=== PATIENT | male | born 1965 | race Caucasian/White ===

== ENCOUNTER 2020-06-20 09:33 | Emergency (ER) | payer SELFPAY ==
[~2020-06-20] VITALS: Ht 190.5 cm; Wt 83.9 kg
--- NOTE | 2020-06-20 09:33 | NUR ---
PT BIBA AND PLACED IN BED 9. COVID PRECAUTIONS IN PLACE.
[2020-06-20] MEDS ORDERED: NACL 0.9% 1,000 ML IV SCH (09:43)
[2020-06-20 09:45] VITALS: BP 107/45
[2020-06-20] MEDS ORDERED: cefTRIAXone 1,000 MG in DEXT 5% MINI-BAG PLUS 50 ML IV ONE (09:45)
--- NOTE | 2020-06-20 09:49 | NUR ---
55 y/o male biba als from home c/o altered mental status, chest, and back pain x 1 wk. Pt states he has increased pain with respirations. Denies trauma/injury. Pt unable to state month or year at this time. Skin warm, dry, and normal in color. RR even and unlabored. Positioned for comfort. x 2 side rails raised. placed on bedside monitor. medhx: asthma
[2020-06-20] MEDS ORDERED: cefTRIAXone 1,000 MG VIAL ONE (09:50)
--- NOTE | 2020-06-20 09:51 | NUR ---
lab at bedside
[2020-06-20 10:08] LABS: BASOPHILS # (AUTO) 0.2 K/uL (0.00-0.22); BASOPHILS % (AUTO) 1.1 % (0.0-2.0); EOSINOPHILS % (AUTO) 0.1 % (0.0-4.0); HEMATOCRIT 31.7 % (36-52); HEMOGLOBIN 10.4 g/dL (12.0-18.0); LYMPHOCYTES # (AUTO) 0.5 K/uL (2.0-11.5); LYMPHOCYTES % (AUTO) 3.3 % (20.5-51.1); MEAN CORPUSCULAR HEMOGLOBIN 31 pg (27-31); MEAN CORPUSCULAR HGB CONC 33 g/dL (33-37); MEAN CORPUSCULAR VOLUME 94.9 fL (80-94); NEUTROPHILS # (AUTO) 14.4 K/uL (1.8-7.7); NEUTROPHILS % (AUTO) 89.5 % (42.2-75.2); PLATELET COUNT (AUTO) 168 K/uL (140-450); RED BLOOD CELL COUNT(AUTO) 3.33 MIL/uL (4.20-6.10); WHITE BLOOD COUNT (AUTO) 16.1 K/uL (4.8-10.8)
--- NOTE | 2020-06-20 10:11 | NUR ---
Pt to CT via [facility]
--- NOTE | 2020-06-20 10:25 | NUR ---
Pt returned from CT via [facility]
[2020-06-20 10:46] LABS: ALBUMIN 1.6 g/dL (3.4-5.0); ANION GAP 15.4 (8-16); CARBON DIOXIDE 19.8 mmol/L (21-32); CREATININE 1.3 mg/dL (0.6-1.3); POTASSIUM 3.2 mmol/L (3.5-5.1); TOTAL BILIRUBIN 0.5 mg/dL (0.0-1.0)
[2020-06-20] MEDS ORDERED: NACL 0.9% 1,000 ML IV ONE ×2 (11:05→11:30)
--- NOTE | 2020-06-20 11:13 | NUR ---
300cc clear, yellow urine collected via straight cath.
--- NOTE | 2020-06-20 11:27 | NUR ---
Dr Box at bedside re-evaluating pt
--- NOTE | 2020-06-20 11:43 | NUR ---
Pt resting in bed with eyes closed, arousable to voice. Positioned for comfort. x 2 side rails raised, bed locked and in lowest position.
--- NOTE | 2020-06-20 12:41 | NUR ---
HOB elevated, resting with eyes closed. No complaints at this time. VSS
--- NOTE | 2020-06-20 12:49 | NUR ---
Report called to [facility], spoke to OCTAVIANO Gibson
[2020-06-20 13:42] VITALS: BP 96/62
--- NOTE | 2020-06-20 13:43 | NUR ---
Patient to be transferred to [facility]. Is being transferred due to higher level of care. Receiving facility has accepting physician and available space. ER physician has signed transfer form. Patient or responsible alliance party has agreed to transfer and signed form. Patient belongings inventoried and will be sent with patient. Copy of nursing notes, lab reports, EKG, Physicians Orders and X-rays to be sent with patient. Report called to OCTAVIANO Gibson at receiving facility. [facility] ambulance service has been called for transfer.
[2020-06-20 20:43] LABS: APPEARANCE,URINE CLEAR (CLEAR); BILIRUBIN,URINE NEGATIVE (NEGATIVE); BLOOD, URINE 3+ (NEGATIVE); COLOR,URINE YELLOW (YELLOW); LEUKOCYTE ESTERASE ,URINE NEGATIVE (NEGATIVE); NITRITE, URINE NEGATIVE (NEGATIVE); UGLUCOSE NEGATIVE (NEGATIVE)
[2020-06-20 20:47] LABS: RBC,URINE 11-20 (MOD) /HPF (0-5); WBC,URINE 0-5 /HPF (0-5)
--- NOTE | 2020-06-20 22:30 | NUR ---
S/W HUSSEIN, [facility], AT [facility] WHO PROVIDED MEDICAL RECORDS FAX NUMBER OF [phone] FOR BLOOD CULTURE PRELIMINARY RESULTS.
== END 2020-06-20 13:43 | disposition short-term general hospital (02) ==
LOC: MED 09:33
DX: R41.82 Altered mental status, unspecified (principal); E87.1 Hypo-osmolality and hyponatremia; G93.6 Cerebral edema; J45.909 Unspecified asthma, uncomplicated; F17.210 Nicotine dependence, cigarettes, uncomplicated
CPT/HCPCS: 36415; 70450; 71045; 80053; 81001; 82140; 83605; 83880; 84484; 85025; 87040; 87086; 87186; 87426; 93005; 96361; 96365; 99285; C1758; J0696; J7030; Q0092